=== PATIENT | male | born 1940 | race Caucasian/White ===

== ENCOUNTER 2018-03-02 08:25 | Day surgery (SDC) | payer OTHER ==
--- NOTE | 2018-03-02 13:06 | GI Report ---
REFERRING PHYSICIAN: Dr. Lyssa Miranda HAND SUTURE WINDER: Regino Davis MD PROCEDURE MEDICATION: Propofol as per anesthesia. INDICATIONS: Patient is a 77-year-old man who had multiple polyps removed in 2012 at [facility] and some were adenomatous. He also has hemochromatosis and does get phlebotomies regularly. No change in bowel habits or bleeding that he is aware of. PROCEDURE PERFORMED: Colonoscopy with polypectomy. PROCEDURE: An Olympus video colonoscope was advanced to the rectum. Sigmoid with a few scattered diverticula. Between 10 and 15 cm, patient had 2 polyps removed with a cold snare that were about 3 to 4 mm in size. The colonoscope was advanced all the way to the cecum. The appendiceal orifice and ileocecal valve were normal. On slow withdrawal, the cecum, ascending colon, and transverse colon with no obvious intraluminal lesions noted. The descending colon and sigmoid colon with scattered diverticula and, again, 2 polyps removed in the sigmoid colon. Retroflexion of the rectum was normal. Patient tolerated the procedure well. FINDINGS: 1. Two sigmoid polyps removed. 2. Mild diverticular disease of the sigmoid colon. RECOMMENDATIONS: 1. A high-fiber diet. 2. Pending the pathology of the polyps, consider re-looking at his colon within 5 years. cc: Dr. Lyssa Miranda [facility]
== END 2018-03-02 08:26 ==
LOC: OPSURG 08:25
PROVIDERS: ATTEND Internal Medicine Gastroenterology
DX: K63.5 Polyp of colon (principal); D12.5 Benign neoplasm of sigmoid colon; K57.30 Diverticulosis of large intestine without perforation or abscess without bleeding; E83.119 Hemochromatosis, unspecified
CPT/HCPCS: J2001; J2704; J7120; 45385; S1016